=== PATIENT | female | born 1985 | race African-American/Black ===

== ENCOUNTER 2025-09-07 17:55 | Inpatient (IN) | payer SELFPAY ==
--- OUTSIDE RECORDS SUMMARY | 2024-12-04 03:40 | XMS_ITS ---
Author Organization [facility] Address [address] [place] [address] Care Team Providers Care Plumbing Warehouse Helper Name Role Phone Fuentes Rome Unavailable [phone] REASON FOR VISIT Pulmonary Follow up Encounters Encounter Location Date Provider Diagnosis [facility] [address] [place] [address] 12/04/2024 Fuentes Rome Plan Of Treatment No Information Progress Notes * Rolly LARSONnDOB:[birth year] (40 yo F)Acc No.[id number]:12/04/2024 Progress Notes Patient: Qian MALONE Provider: Salvador Rome MD :1985 A ge:39 Y S ex:Female Date:12/04/2024 Address:[address] [place], [place] [id number] Subjective: * Chief Complaints: * 1 . Pulmonary Follow up. * Medical History: * Implants: Objective: * Vitals: * Physical Examination: Assessment: Plan: * Treatment: * * Electronic signature of Marcellus Rome MD on 09/07/2025 at 05:39 AM EST Sign off status: Pending * Provider: Salvador Rome MD Date: 0 12/04/2024 Generated for Reneei ng/Miguelito/eTransmitting on: 1 11/08/2024 05:39 AM EST
--- OUTSIDE RECORDS SUMMARY | 2025-09-07 05:38 | XMS_ITS | Encounter Summary ---
Author Organization [facility] Address [address] [place] [address] Care Team Providers Care Manager Company Name Role Phone No, Pcp Primary Care Provider Unavailabl e Reason for Visit * Reason Comments Psych Complaint Encounter Details Date Type Department Care Team ([facility] st Contact Info) Description 09/07/2025 5:38 AM EST - 09/07/2025 5:24 PM EST Emergency [facility] Emergency Medicine [address] [place] [phone] Isabela Blake MD [address] [place] [address] Discharge Disposition: Psychiatric Hospital Social History Tobacco Use Types Packs/Day Years Used Date Smoking Tobacco: Never Assessed [facility] Utilities Answer Date Recorded In the past 12 months has th e electric, gas, oil, or water company threatened to shut off services in your home? No 09/07/2025 Humiliation, Afraid, Rape, and Kick questionnair e Answer Date Recorded Within the last year, have y ou been afraid of your partner or ex-partner? No 09/07/2025 Emotionally Abused Not on file 09/07/2025 Physically Abused Not on file 09/07/2025 Sexually Abused Not on file 09/07/2025 Hunger Vital Sign Answer Date Recorded Within the past 12 months, y ou worried that your food would run out before you got the money to buy more. Never true 09/07/20 25 Ran Out of Food in the Last Year Not on file 09/07/2025 PRAPARE - Transportation Answer Date Re corded In the past 12 months, has l ack of transportation kept you from medical appointments or from getting medications? No 08/20 In the past 12 months, has l ack of transportation kept you from meetings, work, or from getting things needed for daily living? No 09/07/2025 Financial Strain Answer Date Recorded Do you have difficulty payin g for prescriptions or medical bills? 2 09/07/2025 Housing Stability Answer Date Recorded Do you have housing? Yes 09/07/2025 Are you worried about losing your housing? No 09/07/2025 Comments Unknown Sex and Gender Information Value Date Recorded Sex Assigned at Female 03/15/2025 5:48 PM EDT Legal Sex Female 5:48 PM EDT Gender Identity Not on file Sexual Orientation Not on file documented as of this encounter Last Filed Vital Signs Vital Sign Reading Time Taken Comments Blood Pressure 134/90 09/07/2025 2:16 PM EST Pulse 114 09/07/2025 2:16 PM EST Temperature 36.9 C (98.4 F) 09/07/2025 5:40 AM EST Respiratory Rate 20 09/07/2025 2:16 PM EST Oxygen Saturation 97% 09/07/2025 2:16 PM EST Inhaled Oxygen Concentration - - Weight - - Height - - Body Mass Index - - documented in this encounter Medications at Time of Discharge ibuprofen (MOTRIN) 600 MG tablet Take 1 (one) tablet (600 mg total) by mouth every 6 (six) hours as needed (hand pain). 14 tablet 07/22/2025 documented as of this encounter Progress Notes Only the most recent of 2 notes is shown. * Renetta Hoang - 09/07/2025 12:00 PM EST Denied from [facility] due to [facility] limited insurance coverage Referral forwarded to Elsy HIDALGO and Kandace at this time. documented in this encounter ED Notes Only the most recent of 4 notes is shown. * Monet Bird RN - 09/07/2025 2:51 PM EST Nurse to Nurse report given to Deepthi GARCIA at [facility] Monet Bird RN 09/07/25 1452 documented in this encounter Miscellaneous Notes * Discharge Note - Isabela Blake MD - 09/07/2025 2:38 PM EST ED PROFESSIONAL / OBSERVATION DISCHARGE NOTE Qian Bowman is a 40 y.o. female who was placed into observation. Please refer to H&P from the date of observation initiation. ED Events Date/Time Event User Comments 09/07/25 0738 Behavioral Health Observation ISABELA BLAKE Place in ED Behavioral Health Observation- [[id number]] Family History: No reported family history Discharge assessment: Patient has been accepted to [facility] for inpatient level of psychiatric care. Patient will be transferred for treatment by [facility]. Vital signs remained stable patient maintaining behavioral control and is cooperative Discharge exam: Patient awake alert oriented x 3 no respiratory distress comfortable with no additional complaints or concerns moving all extremities speech is clear Plan: Follow-up instructions and findings during the observation stay have been communicated to thepatient. Based on the patient's assessment and response to treatment, arrangements have been made for the patient following the observation period as per selected ED disposition. Patient been excepted in transfer to [facility] Dr. Khan Time spent managing discharge: 30 minutes or less. * Admission - Renetta Hoang - 09/07/2025 12:54 PM EST Pt is accepted to [facility], [address], located at [address] [place] [address] in [facility] She is accepted by Dr. Khan for 4:00PM arrival Please send on S12 RN from [place] will be calling [phone] for nurse to nurse shortly * Initial Evaluation - Renetta Hoang - 09/07/2025 9:41 AM EST Initial Evaluation [facility] Patient Name: Qian Bowman : 1985 Assessment Date: 09/07/25 Language: Ecuadorean Means of Arrival: ambulance Present in Session: patient Communication Factors: none Referral Source: Self/Family Referral Source Contact: - [place] [phone] Additional Sources of Information: EMR Chief Complaint: Patient BIBNeto from home for evaluation for anxiety, SI w/o a plan, and HI without a plan or person. Patient reports that this has been going on since her miscarriage in June. History of Present Illness: Pt is a 40 year old female who presents to the ED reporting increased depression, anxiety and suicidal thinking over the past month. Pt reports that she has a 1 year old daughter and she also had a miscarriage in June of this year. Pt feels that her symptoms are post related to the miscarriage and notes that she experienced similar symptoms following the of her daughter one year ago. At that time she required psychiatric hospitalization and was treated at [facility] for 4 days. Pt feels that her symptoms are worse this time. Pt reports increasing depression with loss of energy, feeling detached from her and child, low motivation to take care of herself and attend to her ADLs, loss of appetite, severe anxiety, and inconsistent sleep patterns. She denies AH/VH but endorses some vague feelings of paranoia. 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 Pt also admits to abusing alcohol daily for the past 2 months as a coping mechanism. She reports that she has been drinking whiskey from the time she wakes up until she passes out at night. She endorses withdrawal symptoms of nausea, sweating and tremors today. She denies any seizures of delerium. She reports alcohol abuse has never been a problem before in her life. Pt is concerned for her ownsafety at this point as she notes her suicidal thoughts have been constant. She denies having a plan or any attempts. She denies any HI when asked but reports a general feeling of detachment from her1 year old daughter I don't even want to hold her . Date Call Received: 09/07/25 Time Call Received: 929 Date Call Responded To: 09/07/25 Time Call Responded To: 5731 Telepsych Eval?: Yes Did the patient engage in any behaviors that either had potential to, or did harm to themselves or someone else?: No Danger to Others Danger to Others: No Risk Event Assessment Plan Based on the RICKI, has risk to self or others been identified?: Yes Patient agrees to engage in a plan to maintain safety?: Yes Interventions: Restriction to unit, Continuous supervision (EPB Only), Safety linens/tear resistantcoverlet, Removal of objects which may be used for self- harm, Search of patient's belongings/room, Suicide/self-injury precaution diet Name of Provider Notified: Dr. Blake Date Provider Notified: 09/07/25 Time Provider Notified: 939 Risk Profile Risk Profile: Suicide/ Self Injury Do you have housing?: Yes Are you worried about losing your housing? : No Within the past 12 months, you worried that your food would run out before you got the money to buymore.: Never true Do you have difficulty paying for prescriptions or medical bills?: No In the past 12 months, has lack of transportation kept you from medical appointments or from getting medications?: No In the past 12 months, has lack of transportation kept you from meetings, work, or from getting things needed for daily living?: No In the past 12 months has the [employer], gas, oil, or water [employer] threatened to shut off services in your home?: No Intervention: Psychoeducation, Family/peer connection established, Develop/enhance/review coping skills [place] Screen (C-SSRS) Risk Level: C-SSRS Risk Level: 0.5 Low Risk (0.5-1.5) Moderate Risk (2-4.5) High Risk (5+) Suicide Inquiry: Suicidal Thoughts (Frequency, Duration, Intensity/Controllability): Yes x1 month, growing more intense and persistent Suicide Plan (timing, location): Denies Availability of Means: No Preparatory Acts/Behaviors: Denies Intent (lethality): No History of Attempts: No If Yes, Describe (type of attempt including interrupted, self-interrupted, when, precipitants, means, level of impulsivity, intent, outcome): N/A Risk Behaviors: Past and Current Risk/Safety Assessment Behaviors Risk History and Active Aggressive/Assaultive Not active and denies history Homicidal Ideation/Attempts Not active and denies history Self-Injurious Behavior Not active and denies history Sexualized Behavior Not active and denies history Elopement Not active and denies history Fire Setting Not active and denies history Property Destruction Not active and denies history Cruelty to Animals Not active and denies history Pica/Swallowing objects Not active and denies history Somatic Functioning Sleep: Pt reports inconsistent sleep patterns Weight: loss 1-10 lbs Appetite: decreased Eating Behaviors: eating less Energy: decreased Additional History Past Psychiatric Care Pt was hospitalized at [facility] one year go after the of her daughter for similar symptoms. Past Psychiatric Medications: Pt reports she was given sleep medication following her admission to [facility] last year. She is not on any other medications at this time. Current Treatment for Psychiatric Care No providers currently. 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 Legal Issues: None Sexual History Sexual Orientation: Is your gender identify the same as the one you were assigned at : Significant Substance Use History Pt reports daily ETOH for the past 2 months as a coping mechanism - she says that she has been drinking whiskey shots from the time she wakes up, until she passes out in the evening. She endorses withdrawal symptoms of nausea, sweating and tremors. No hx of seizures or DT. She states alcohol has never been an issue in her life until now. Specialty Services None Family History: No family history on file. No current facility-administered medications for this encounter. Current Outpatient Medications Medication Sig Dispense Refill ibuprofen (MOTRIN) 600 MG tablet Take 1 (one) tablet (600 mg total) by mouth every 6 (six) hours asneeded (hand pain). 14 tablet 0 Side effects noted: N/A Allergies: No Known Allergies PCP: Pcp MD Miya There is no problem list on file for this patient. No past medical history on file. Mental Status Examination Appearance/behavior: Appears stated age. Well groomed. Good eye contact. Manner: Calm. Cooperative. Orientation: Oriented x 3. Musculoskeletal: Gait and station normal. Motor: Unremarkable. Speech: Normal volume. Normal rhythm Normal rate Language: Able to repeat words Able to name objects Mood: Depressed Affect: Depressed. Flat. Thought process: Linear. Reports some vague paranoia, denies AH/VH Associations: Intact. Thought content: Pt reports persistent SI over the past month and feelings of detachment. Perception: No hallucinations. Suicidal ideation: Active. No plan. Homicide ideation: Denies. Insight: Fair. Judgement: Fair. Recent and remote memory: Intact long and short term memory. Attention and concentration: Developmentally appropriate. Fund of knowledge: Adequate. Risk/Protective Factors: General: Active Substance Abuse Access to a Gun: No Psychiatric Symptoms: Depressed mood, Paranoid ideation*, and Severe anxiety/panic Suicidal Behavior: SI - no plan or attempts Harm to Others: None Elopement Risk: None Protective Factors: Family/friends/caregivers willing and able to support patient, Motivated to engage in and follow safety plan, Responsibility to family, friends, and/or pets, and Stable home and finances Adequacy of evaluation and feedback: Have you interviewed informant other than patient?: No* Are supportive adults available to watch carefully for 24 hours and ensure a follow-up appointment?: Yes Is family prepared to remove or secure pills, guns, and other weapons from the home?: Yes Suicide Risk Level: Moderate Aggression Risk Level: Low Elopement Risk Level: Low Formulation/Rationale for Level of Care: Pt reports persistent suicidal ideation over the past month as well as worsening severe depressive symptoms impacting her daily functioning. She has also been abusing alcohol daily for 2 months whichis putting her at risk for impaired judgment/disinhibition as it relates to her suicidal thinking. Pt is a risk to herself at this time and requires further psychiatric evaluation for support, safety,and stabilization. *If you have picked any of the starred items above, and you plan to discharge patient, explain the reasons for your decision: N/A *I attest that in my suicide assessment of this patient I identified suicide risk and protective factors, conducted a suicide inquiry, determined the level of suicide risk and the intervention(s) to best address this risk: Yes Diagnoses: F53.0 PPD F10.20, Alcohol use disorder, sev Initial Plan: Client meets level of care Pt will board in the ED to await placement Disposition: ED board for inpatient psych, , Legal Status: Section 12 Authorization: none I have counseled the patient/family about: the disinhibiting effects of alcohol/drugs, as their useincreases risk of harm to self/others and the need for supervision until the follow up Disposition and treatment plan options discussed with patient, parent, and/or legal guardian: Yes. Does the patient have any Advanced Psychiatric Directives? No Case, disposition and treatment plan discussed with spring up supervisor: Yes, Dr. Blake Total Time: 1 hour Signature: Renetta Hoang Electronic Signature documented in this encounter Plan of Treatment Not on file documented as of this encounter Procedures Procedure Name Priority Date/Time Associated Diagnosis Comments BASIC METABOLIC PANEL STAT 09/07/2025 6:20 AM EST CBC WITH DIFF STAT 09/07/2025 6:20 AM EST HCG, QUALITATIVE, SERUM STAT 09/07/2025 6:20 AM EST ETHANOL LEVEL STAT 09/07/2025 6:20 AM EST URINE DRUG SCREEN STAT 09/07/2025 6:1 4 AM EST CONVERSION BUPRENORPHINE SUBOXONE SCREEN Routine 09/07/2025 6:14 AM EST documented in this encounter Results * HCG, Qualitative, Serum (09/07/2025 6:20 AM EST) hCG Qualitative, Serum Negative negative 09/07/2025 7:06 AM EST [facility] Comment: A negative or indeterminate result does not rule out . Because hCG doubles every two days, patients with negative or indeterminate results should be redrawn and retested in 2 days, if indicated. Blood 09/07/2025 6:20 AM EST 09/07/2025 6:30 AM EST us Lizz Park DO LAB BLOOD ORDERABLES Final Resul t [facility] [address] [place] [address], [facility] [address] [place] [address] * (ABNORMAL) Ethanol Level (09/07/2025 6:20 AM EST) Ethanol Level 16(H) Not Detected MG/DL 09/07/2025 7:11 AM [facility] Blood PERIPHERAL BLOOD / Unknown 09/07/2025 6:20 AM EST 09/07/2025 6:30 AM EST Lizz Park DO LAB BLOOD ORDERABLES Final Resul t [facility] [address] [place] [address], [facility] [address] [place] [address] * (ABNORMAL) Basic Metabolic Panel (09/07/2025 6:20 AM EST) Glucose 101(H) 67 - 99 MG/DL 09/07/2025 7:11 AM [facility] BUN 8 6 - 24 MG/DL 09/07/2025 7:11 AM [facility] Creat Level 0.70 0.44 - 1.03 MG/DL 09/07/2025 7:11 AM [facility] eGFR 113 >90 mL/min/1.7 3m exp2 09/07/2025 7:11 AM [facility] Comment:Calculated using the CKD-epi 2020 race-free equation. BUN Creatinine Ratio 11 09/07/2025 7:11 AM [facility] Sodium 136 135 - 145 mEq/L 09/07/2025 7:11 AM [facility] Potassium 3.3(L) 3.6 - 5.1 mEq/L 09/07/2025 7:11 AM [facility] Chloride 98 98 - 110 mEq/L 09/07/2025 7:11 AM [facility] CO2 19(L) 20 - 29 mEq/L 09/07/2025 7:11 AM [facility] Anion Gap 19(H) 3 - 13 09/07/2025 7:11 AM [facility] Calcium 8.0(L) 8.4 - 10.2 MG/DL 09/07/2025 7:11 AM [facility] Blood 09/07/2025 6:20 AM EST 09/07/2025 6:30 AM EST us Lizz Park DO LAB BLOOD ORDERABLES Final Resul t [facility] [address] [place] [address], [facility] [address] [place] [address] * (ABNORMAL) CBC WITH DIFF (09/07/2025 6:20 AM EST) WBC 3.4(L) 4.2 - 10.0 w27jvc7/L 09/07/2025 6:47 AM [facility] RBC 4.08 3.80 - 5.10 t43osz47/ L 09/07/2025 6:47 AM [facility] Hemoglobin 12.8 11.2 - 14.9 g/dL 09/07/2025 6:47 AM [facility] Hematocrit 37.1 36.0 - 48.0 % 09/07/2025 6:47 AM [facility] MCV 90.9 85.2 - 100.2 fL 09/07/2025 6:47 AM [facility] MCH 31.4 27.0 - 32.4 pg 09/07/2025 6:47 AM [facility] MCHC 34.5(H) 29.5 - 34.2 g/dL 09/07/2025 6:47 AM [facility] RDW 15.6(H) 11.8 - 14.4 % 09/07/2025 6:47 AM [facility] Platelets 233 168 - 382 d19qgg0/L 09/07/2025 6:47 AM [facility] MPV 11.0 9.6 - 12.5 fL 09/07/2025 6:47 AM [facility] NRBC % 0.0 -1.0 - 0.0 % 09/07/2025 6:47 AM [facility] NRBC (absolute) 0.0 o35tid1/L 6:47 AM [facility] Immature Granulocytes % 0.3 % 09/07/2025 6:47 AM [facility] Immature Granulocytes (absolute) 0.0 0.0 - 0.1 l32gtw7/L 09/07/2025 6:47 AM [facility] Seg Neutrophil % 59.4 % 09/07/20 6:47 AM EST [facility] Seg Neutrophil (absolute) 2.0 1.9 - 6.7 z48cia0/L 09/07/2025 6:47 AM EST [facility] Lymphocyte % 26.7 % 09/07/2025 6:47 AM EST [facility] Lymphocyte (absolute) 0.9(L) 1.0 - 3.3 b70uvl9/L 09/07/2025 6:47 AM [facility] Monocyte % 10.6 % 09/07/2025 6:47 AM [facility] Monocyte (absolute) 0.4 0.3 - 0.9 c24iwp2/L 09/07/2025 6:47 AM [facility] Eosinophil % 1.2 % 09/07/2025 6:47 AM [facility] Eosinophil (absolute) 0.0 0.0 - 0.4 y07xsj4/L 09/07/2025 6:47 AM [facility] Basophil % 1.8 % 09/07/2025 6:47 AM [facility] Basophil (absolute) 0.1 0.0 - 0.1 q12hhh6/L 09/07/2025 6:47 AM [facility] 09/07/2025 6:20 AM EST 09/07/2025 6:30 AM EST us Lizz Pakr DO LAB BLOOD ORDERABLES Final Resul t [facility] [address] [place] [address], [facility] [address] [place] [address] * Buprenorphine Suboxone Screen (09/07/2025 6:14 AM EST) Buprenorphine Suboxone Scrn None Detected 09/07/2025 6:51 AM EST [facility] 09/07/2025 6:14 AM EST 09/07/2025 6:32 AM EST us Lizz Del Castillok DO LAB BLOOD ORDERABLES Final Resul t [facility] [address] [place] [id number], [facility] [address] [place] [address] * Urine Drug Screen (09/07/2025 6:14 AM EST) Amphetamine Scrn, Ur None Detected 09/07/2025 6:51 AM EST [facility] Benzodiazepine Screen, Urine None Detected 09/07/2025 6:51 AM [facility] Cannabinoid Screen, Urine None Detected 09/07/2025 6:51 AM [facility] Cocaine Screen, Ur None Detected 09/07/2025 6:51 AM [facility] Fentanyl Screen, Urine None Detected 09/07/2025 6:51 AM EST [facility] Comment: This test was developed and its performance characteristics determined by the Clinical Biochemistry Lab. It has not been cleared or approved by the [place] Food and Drug Administration but the [place] regulations permit its development under the laboratory license. This test and method is defined in the clinical lab guide and should not be regarded as investigational or research use only. Methadone Screen, Urine None Detected 09/07/2025 6:51 AM [facility] Opiate Screen, Urine None Detected 09/07/2025 6:51 AM [facility] Comment: Note: Drug of abuse immunoassay results are from screening methods. Positive screening results that are not confirmed are reported as POSITIVE SCREEN. If confirmatory testing is desired, it must be requested as a separate order to the Toxicology Lab WITHIN 5 DAYS of sample collection. Unconfirmed screening results should only be used for medical purposes. Oxycodone Scrn, Ur None Detected 09/07/2025 6:51 AM [facility] Urine 09/07/2025 6:14 AM EST 09/07/2025 6:32 AM EST us Lizz Vivian DO URINE ORDERABLES Final Result [facility] [address] [place] [address], [facility] [address] [place] [address] documented in this encounter Visit Diagnoses Not on filedocumented in this encounter Administered Medications Inactive Administered Medications - up to 3 most recent administrations Medication Order MAR Action Action Date Dose Rate Site LORazepam (ATIVAN) tablet 2 mg 2 mg, Oral, Once, On Wed09/07/25 at 1015, 1 dose Given 09/07/2025 10:05 AM EST 2 mg documented in this encounter Active and Recently Administered Medications Times are shown in EST. Scheduled Medication Order 09/05/2025 09/06/2025 09/07/2025 LORazepam (ATIVAN) tablet 2 mg (COMPLETED) 2 mg, Oral, Once, On Wed09/07/25 at 1015, 1 dose 1005 (Given - Provid er: Monet Bird RN) documented in this encounter Care Teams Manager Company Relationship Specialty Start Date End Date No, Pcp, No Address No [place] [address] PCP - General Internal Medicine 07/22/25 documented as of this encounter
--- OUTSIDE RECORDS SUMMARY | 2025-09-07 18:03 | XMS_ITS | Patient Health Record ---
Author Organization [facility] Address [address] [place] [address] Care Team Providers Care Airline Stewardess Name Role Phone Fuentes Rome Unavailable [phone] Allergies No Known Allergies Reason For Referral No Information Medications Medication SIG (Take, Route, Fr equency, Duration) Notes Start Date End Date Status 27-1 MG 1 tablet Orally Once a day Active Aspir-Low 81 MG 1 tablet Orally Once a day Active Immunizations Vaccine Route Administration Date Status Comme nts PPD ID Intradermal 10/20/2023 Administered -Per Provider PPD read is positive and is 2CM. Social History Tobacco Use: Social History Observation Description Date Details (start date - stop date) Never Smoker NA - NA Tobacco Use/Smoking Question Answer Notes Patient is a: never smoker Encounters Encounter Location Date Provider Diagnosis [facility] [address] [place] [address] 12/05/2024 Fuentes Rome Plan Of Treatment No Information Insurance Providers Payer Name Payer Address Payer Phone Subscriber Number Group Number Insured Name Patient Relationship to Insured Coverage Start Date Coverage End Date [facility]ly [facility] [address] [place] [phone] [id number] COMMERCIA L Emilianotoni Qian Self - patient is the insured 4 4 [facility] [address] AMINA [place] [id number] Qian Jarvis Self - patient is the insured 3 4 Medical (General) History Hospitalization History Reason Date(Month/Year) [facility]
--- OUTSIDE RECORDS SUMMARY | 2025-09-07 18:03 | XMS_ITS | Clinical Summary ---
Author Organization [facility] Address [address] [place] [address] Phone Care Team Providers Care Geospatial Specialist Name Role Phone Tani Lozano MD Unavailable [phone] Allergies No known active allergies Medications vit no.124/iron/foli c ( VITAMIN ORAL) Take by mouth. Active aspirin 81 mg EC tablet Take 81 mg by mouth 1 time each day. Active Social History Tobacco Use Types Packs/Day Years Used Date Smoking Tobacco: Never Assessed Comments No Sex and Gender Information Value Date Recorded Sex Assigned at Not on file Legal Sex Female 3:23 PM EST Gender Identity Not on file Sexual Orientation Not on file Plan of Treatment Health Maintenance Due Date Last Done Comments Chlamydia and Gonorrhea Screening 1987 HIV Screening 1987 MMR Vaccines (1 of 1 - Stand bryan series) 1988 DTaP/Tdap/Td Vaccines (1 - Tdap) 1994 Anemia Screening 1999 Varicella Vaccines (1 of 2 - 13+ 2-dose series) 2000 Hepatitis C Screening 2005 Hepatitis B Vaccines (1 of 3 - 19+ 3-dose series) 2006 COVID-19 Vaccine (2024-2 6 season) 2025 Influenza Vaccine (#1) 2025 HIB Vaccines Aged Out No longer eligi ble based on patient's age to complete this topic HPV Vaccines (No Doses Required) Completed Hepatitis A Vaccines Aged Out No long er eligible based on patient's age to complete this topic IPV Vaccines Aged Out No longer eligi ble based on patient's age to complete this topic Meningococcal B Vaccine Aged Out No l onger eligible based on patient's age to complete this topic Meningococcal Vaccine Aged Out No agustin celio eligible based on patient's age to complete this topic Pneumococcal Vaccine: Pediat rics (0 to 5 Years) and At-Risk Patients (6 to 49 Years) Aged Out No longer eligible b ased on patient's age to complete this topic Rotavirus Vaccines Aged Out No longer eligible based on patient's age to complete this topic Insurance [employer] on file [employer] on file Care Teams Geospatial Specialist Relationship Specialty Start Date End Date Tani Lozano MD [address] [place] [address] [place] [phone] Referring Provider Obstetrics and Gynecology 08/24/24
--- OUTSIDE RECORDS SUMMARY | 2025-09-07 18:03 | XMS_ITS | Clinical Summary ---
Author Organization [facility] Address [address] [place] [address] Care Team Providers Care Licensed Staff Mft Name Role Phone Pcp, No Primary Care Provider Unavailabl e Allergies No known active allergies Social History Tobacco Use Types Packs/Day Years Used Date Smoking Tobacco: Never Assessed Comments Unknown Sex and Gender Information Value Date Recorded Sex Assigned at Not on file Legal Sex Female 4:07 PM EDT Gender Identity Not on file Sexual Orientation Not on file Last Filed Vital Signs Vital Sign Reading Time Taken Comments Blood Pressure 146/87 02/12/2024 4:12 PM EDT Pulse 72 02/12/2024 4:12 PM EDT Temperature 37.1 C (98.7 F) 02/12/2024 4:12 PM EDT Respiratory Rate 16 02/12/2024 4:12 PM EDT Oxygen Saturation 100% 02/12/2024 4:12 PM EDT Inhaled Oxygen Concentration - - Weight 89.4 kg (197 lb) 02/12/2024 4:12 PM EDT Height 175.3 cm (5' 9 ) 02/12/2024 4:12 PM EDT Body Mass Index 29.09 02/12/2024 4:12 PM EDT Plan of Treatment Health Maintenance Due Date Last Done Comments Annual Physical 1990 Hepatitis B Screening 2005 DTaP,Tdap,and Td Vaccines (1 - Tdap) 2006 COVID-19 Vaccine (2023-2 5 season) 2025 Influenza Vaccine (#1) 2025 HIB Vaccines Aged Out No longer eligi ble based on patient's age to complete this topic Hepatitis A Vaccine Aged Out No longe r eligible based on patient's age to complete this topic Pneumococcal Vaccines 0-49 y rs (includes High Risk) Aged Out No longer eligible based on patient's age to complete this topic Insurance HSN PARTIAL Care Teams Licensed Staff Mft Relationship Specialty Start Date End Date Miya Dobbins [phone] PCP - General 02/12/24
--- OUTSIDE RECORDS SUMMARY | 2025-09-07 18:03 | XMS_ITS | Encounter Summary ---
Author Organization [facility] Address [email or web address] [place] [address] Phone Care Team Providers Care Multi Purpose Machine Operator Name Role Phone Shelli Maher DO Primary Care Provider Encounter Details Date Type Department Care Team (Late st Contact Info) Description 09/02/2024 Procedure Pass [facility] [address] [place] [address] Social History Tobacco Use Types Packs/Day Years Used Date Smoking Tobacco: Never Passive Smoke Exposure: Never Smokeless Tobacco: Never Alcohol Use Standard Drinks/Week Comments Not Currently 0 (1 standard drink = 0.6 oz pur e alcohol) Education Answer Date Recorded Are you interested in more education? Not on virginia e 01/15/2023 Are you concerned about learning? Not on file 01/15/2023 No 01/15/2023 No 01/15/2023 Digital Access Answer Date Recorded No 02/15/2023 No 02/15/2023 Reliable internet access at home? Not on file 02/15/2023 Device with a working camera? Not on file Intimate Partner Violence Answer Date R ecorded Are you denied basic needs s uch as food, clothing, or medical care? No 09/01/2024 In the past 12 months have y ou been in a relationship with a person who hurts, threatens, or tries to control you? No 09/01/2024 Are you denied basic needs s uch as food, clothing, or medical care? No 09/01/2024 In the past 12 months have y ou been in a relationship with a person who hurts, threatens, or tries to control you? No 09/01/2024 Comments Yes Sex and Gender Information Value Date Recorded Sex Assigned at Female 01/19/2022 3:09 PM EDT Legal Sex Female 11:49 PM EDT Gender Identity Female 01/19/2022 3:09 PM EDT Sexual Orientation Straight 01/19/2022 3: 09 PM EDT documented as of this encounter Plan of Treatment Not on file documented as of this encounter Visit Diagnoses Not on filedocumented in this encounter Additional Health Concerns Assessment Noted Time PHQ-2 Depression Total Score: 0 08/15/20 24 3:23 PM EST documented as of this encounter Care Teams Multi Purpose Machine Operator Relationship Specialty Start Date End Date Shelli Maher DO [address] [place] [phone] [email or web address] PCP - General Internal Medicine 05/12/24 documented as of this encounter Additional Source Comments The information contained in this document represents components of the legal health record. It is not the complete legal health record.[facility]
--- OUTSIDE RECORDS SUMMARY | 2025-09-07 18:03 | XMS_ITS | Clinical Summary ---
Author Organization [facility] Address [address] [place] [address] Phone Care Team Providers Care Acute Care Surgeon Name Role Phone Shelli Maher DO Primary Care Provider Allergies No known active allergies Medications No known medications Active Problems No known active problems Resolved Problems Problem Noted Date Diagnosed Date Resolved Date 36 weeks gestation of 09/02/2024 10/10/2024 Normal , unspecified trimester 09/01/2024 10/10/2024 Normal intrauterine , antepartum 09/01/2024 10/10/2024 and placental problem affecting management of mother in third trimester 09/01/2024 10/10/2024 Overview (09/01/2024): Pericardial Effusion noted on recent OB US - patient not seen by [facility] NICU PLAN: Delivery is planned via ECV/IOL or CS on 09/01. (Update 09/01 - fetus is vertex) Delivery Location: Delivery Room if vaginal delivery. The NICU team members who will be at the delivery will include Physicians, Nurses and a Respiratory Therapist. Delayed cord clamping is recommended - this at the discretion of the NICU team attending the delivery. Qian has not had genetic counseling. Cord blood for genetic testing will not be obtained. The infant will be assessed and stabilized by the Neonatology team. The family may be able to hold their baby prior to transfer given the underlying medical condition, and dependent on the baby's clinical condition. This is at the discretion of the NICU team attending the delivery. Delivery Room and Immediate Medical Plan: The NICU team will evaluate the baby in the Delivery Room. If they are well appearing they may stay with the mother and be admitted to [facility]. The NICU Resident will leave a message for the Pediatric Hospitalist/Primary Warehouse Delivery Manager. Baby should have a Cardiology consult during the stay in N with a likely ECHO at that time. I also recommend a renal US prior to discharge. Feeding: I reviewed the benefits of breast milk, the importance of early pumping after delivery (< 6 hours), and the availability of [facility] consultants to provide assistance for initiation of pumping. Breech presentation 08/28/2024 10/10/19 25 Overview (09/01/2024): 35w: vertex 36w: breech 37w: found to be vertex on presentation for ECV Abnormal ultrasound 08/24/2024 Overview (08/28/2024): Mild Pericardial effusion on u/s at 35 weeks 36w: difficult to assess S/p MFM e-consult: MFCC/TTE prior to delivery or faina consult -> assessment [ ] f/u MFCC Pre-eclampsia in third trimester 06/05/2024 11/13/2024 Overview (08/28/2024): Pre-eclampsia w/o SF 06/05/24: SR BP in office x1 35w: MR in office -> PEC labs neg, P:C 0.52 IOL 37w Marginal insertion of umbili prateek cord affecting management of mother 05/16/2024 Overview (05/16/2024): Marginal cord insertion [ ] Obtain baseline EFW at 32 weeks Antepartum abnormal glucose tolerance of mother 05/16/2024 10/10/2024 Overview (05/30/2024): GLT 148 @21w5d [x] 3h GTT - normal - per Dr. Lozano no further testing GTT (3 Hr) - Fasting Glucose 54 - 94 mg/dL 81 Comment: GTT (3 Hr) - 1 Hr Glucose 54 - 179 mg/dL 138 Comment: GTT (3 Hr) - 2 Hr Glucose 54 - 154 mg/dL 144 Comment: GTT (3 Hr) - 3 Hr Glucose 70 - 139 mg/dL 116 03/14/2024 05/30/2024 Advanced maternal age, primi , antepartum 03/14/2024 10/10/2024 Immunizations No known immunizations Family History Medical History Relation Comments No Known Problems Brother No Known Problems Father No Known Problems Maternal Grandfather No Known Problems Maternal Grandmother No Known Problems Mother No Known Problems Paternal Grandfather No Known Problems Paternal Grandmother No Known Problems Sister defects Neg Hx Bleeding Disorder Neg Hx Breast cancer Neg Hx Colon cancer Neg Hx Diabetes Neg Hx Genetic Disorder Neg Hx Hypertension Neg Hx Ovarian cancer Neg Hx Uterine cancer Neg Hx Relation Status Comments Brother Alive Father Alive Maternal Grandfather Maternal Grandmother Mother Alive Paternal Grandfather Paternal Grandmother Sister Alive Social History Tobacco Use Types Packs/Day Years Used Date Smoking Tobacco: Never Passive Smoke Exposure: Never Smokeless Tobacco: Never Tobacco Cessation:Counseling Given: Not Answered Alcohol Use Standard Drinks/Week Comments Not Currently [...] as food, clothing, or medical care? No 12/19/2024 In the past 12 months have y ou been in a relationship with a person who hurts, threatens, or tries to control you? No 12/19/2024 Are you denied basic needs s uch as food, clothing, or medical care? No 12/19/2024 In the past 12 months have y ou been in a relationship with a person who hurts, threatens, or tries to control you? No 12/19/2024 Comments No Sex and Gender Information Value Date Recorded Sex Assigned at Female 01/19/2022 3:09 PM EDT Legal Sex Female 11:49 PM EDT Gender Identity Female 01/19/2022 3:09 PM EDT Sexual Orientation Straight 01/19/2022 3: 09 PM EDT Last Filed Vital Signs Vital Sign Reading Time Taken Comments Blood Pressure 128/82 12/19/2024 11:28 AM EDT Pulse 84 09/06/2024 7:58 AM EST Temperature 36.7 C (98.1 F) 09/06/2024 7:58 AM EST Respiratory Rate 18 09/06/2024 7:58 AM EST Oxygen Saturation 97% 09/06/2024 7:58 AM EST Inhaled Oxygen Concentration - - Weight 103 kg (227 lb) 12/19/2024 11:28 AM EDT Height 172.7 cm (5' 8 ) 12/19/2024 11:28 AM EDT Body Mass Index 34.52 12/19/2024 11:28 AM EDT Plan of Treatment Health Maintenance Due Date Last Done Comments Adult Td,Tdap Booster 1987 INFLUENZA VACCINE (#1) 2025 COVID-19 VACCINE ( - 2024-2 6 season) 2025 DEPRESSION SCREENING 12/19/2025 12/19/2024 SCREENING FOR DIABETES 09/01/2027 09/01/2024 PAP SMEAR 12/20/2027 12/19/2024, 12/19/2024 HEPATITIS C SCREENING Completed 05/15/2024 , 05/15/2024 HIV ONE-TIME SCREENING (18-6 5 YEARS) Completed 05/15/2024 SMOKING STATUS SCREENING (On ce After 26 Yrs) Completed 12/19/2024 HEPATITIS A VACCINES Aged Out No long er eligible based on patient's age to complete this topic HIB VACCINES Aged Out No longer eligi ble based on patient's age to complete this topic MENINGOCOCCAL VACCINES (ACWY) Aged Out No longer eligible based on patient's age to complete this topic MENINGOCOCCAL VACCINES (B) Aged Out N o longer eligible based on patient's age to complete this topic PNEUMOCOCCAL VACCINES (0-49 years) Aged Out No longer eligible b ased on patient's age to complete this topic Medical Devices Not on file Procedures Procedure Name Priority Date/Time Associated Diagnosis Comments PAP AND HPV W/ GENOTYPING Routine 12/19/2024 1:14 PM EDT Screening for malignant neoplasm of cervix HEPATITIS C ANTIBODY, QUALITATIVE Routine 05/15/2024 3:36 PM EDT Need for hepatitis C screening test 12 weeks gestation of Advanced maternal age, primigravida, antepartum from Last 3 Months or Most Recently Relevant to Health Maintenance Results * PAP and HPV w/ Genotyping (12/19/2024 1:14 PM EDT) HPV 16 Not Detected Not Detected [facility] HPV 18 Not Detected Not Detected [facility] HPV High Risk Genotype Other Than 16/18 Not Detected Not Detected [facility] Comment:Interpretation of HP V results may depend on Pap results if both tests were done. Pap Test SEE PATHOLOGY REPORT [facility] Specimen Source CERVICAL [address] [facility] 12/19/2024 1:14 PM EDT 12/19/2024 7:16 PM EDT us Tani Lozano MD BODY FLUIDS AND STOOLS O RDERABLES Final Result Performing Organization Address City/[facility] Co de Phone Number [address] [facility] [address] [place], [place] [id number] [place] [address] Department of Path[address] [place] [address], [facility] [address] [place] [address] * Hepatitis C antibody, qualitative (05/15/2024 3:36 PM EDT) HCV Nonreactive Nonreactive [facility] Blood 05/15/2024 3:36 PM EDT 05/15/2024 4:01 PM EDT us Elmira Montero PA-C LAB BLOOD BKR ORDERABLES Final Result [facility] [address] [place] [address] from Last 3 Months or Most Recently Relevant to Health Maintenance Insurance HEALTH SAFETY NET PARTIAL SAFETY NET PARTIAL HEALTH SAFETY NET PARTIAL HEALTH SAFETY NET PARTIAL HEALTH SAFETY NET PARTIAL HEALTH SAFETY NET PARTIAL Advance Directives For more information, please contact: [phone] (9AM - 5PM [facility], Wednesday-Wednesday) Documents on File Type Date Recorded Patient Babysitter Expl anation Advance Directive - Non Epic LMR 05/03/2014 12:00 AM * Full Code (Latest Code Status on File) Date Activated Date Inactivated Comments 09/02/2024 11:55 PM Question Answer Comments Code Status Confirmed With: Patient Care Teams Acute Care Surgeon Relationship Specialty Start Date End Date Shelli Maher DO [address] [place] [phone] [email or web address] PCP - General Internal Medicine 05/12/24 Additional Source Comments The information contained in this document represents components of the legal health record. It is not the complete legal health record.[facility]
--- OUTSIDE RECORDS SUMMARY | 2025-09-07 18:03 | XMS_ITS | Encounter Summary ---
Author Organization [facility] Address [address] [facility] [address] [place] [address] Phone Care Team Providers Care Asphalt Machine Operator Name Role Phone Pcp, Unknown Primary Care Provider Shelli Patel DO Primary Care Provider Encounter Details Date Type Department Care Team (Late st Contact Info) Description 03/13/2024 Ancillary Orders [facility] Gynecology [facility] [address] [facility] [place] [address] [place] [address] Elmira Montero PA-C [address] [place] [address] [email or web address] Supervision of normal first (Primary Dx) Social History Tobacco Use Types Packs/Day Years Used Date Smoking Tobacco: Never Smokeless Tobacco: Never Alcohol Use Standard [...] with a working camera? Not on file Comments Yes Sex and Gender Information Value Date Recorded Sex Assigned at Female 01/19/2022 3:09 PM EDT Legal Sex Female 11:49 PM EDT Gender Identity Female 01/19/2022 3:09 PM EDT Sexual Orientation Straight 01/19/2022 3: 09 PM EDT documented as of this encounter Plan of Treatment Not on file documented as of this encounter Results * US OB LESS THAN 14 WEEKS NUCHAL TRANSLUCENCY WITH 1ST TRIMESTER (03/13/2024 10:50 AM EDT) Anatomical Region Laterality Modality Abdomen, Pelvis, Uterus/Adnexa U ltrasound 03/13/2024 10:5 2 AM EDT Impressions 03/13/2024 11:08 AM EDT Best GA (CRL): 12w4d, EDC: 2024 Fetus 1: Normal nuchal translucency. Narrative 03/13/2024 11:08 AM EDT Findings: Exam(s): OB Ultrasound <14 weeks transabdominal , First tri nuchal translucency scan Indications: First look , Uncertain dates , Advanced maternal age NUMBER: Gill Maternal Anatomy: UTERUS: Normal OVARIES: Both Normal Obstetrical Findings: STATUS: Alive GESTATIONAL SAC: Normally shaped intrauterine gestational sac. AMNIOTIC FLUID: Normal Volume PLACENTA: Anterior Anatomy: HEAD: Normal for gestational age <14 weeks STOMACH: Seen BLADDER: Too early to assess due to gestational age VENTRAL WALL: Normal umbilical cord insertion EXTREMITIES: All 4 Present Measurements: CRL: 60 mm Basis for GA: CRL : 12w4d NUCHAL TRANSLUCENCY: 1.3 mm (A measurement <3.0 mm is normal if patient has screened negative on cell-free DNA aneuploidy screening) Procedure Note Shawn Tang MD - 03/13/2024 Findings: Exam(s): OB Ultrasound <14 weeks transabdominal , First tri nuchaltranslucency scan Indications: First look , Uncertain dates , Advanced maternal age NUMBER: Gill Maternal Anatomy: UTERUS: Normal OVARIES: Both Normal Obstetrical Findings: STATUS: Alive GESTATIONAL SAC: Normally shaped intrauterine gestational sac. AMNIOTIC FLUID: Normal Volume PLACENTA: Anterior Anatomy: HEAD: Normal for gestational age <14 weeks STOMACH: Seen BLADDER: Too early to assess due to gestational age VENTRAL WALL: Normal umbilical cord insertion EXTREMITIES: All 4 Present Measurements: CRL: 60 mm Basis for GA: CRL : 12w4d NUCHAL TRANSLUCENCY: 1.3 mm (A measurement <3.0 mm is normal if patienthas screened negative on cell-free DNA aneuploidy screening) IMPRESSION: Best GA (CRL): 12w4d, EDC: 2024 Fetus 1: Normal nuchal translucency. us Elmira Montero PA-C IMG US OBSTETRIC Final Result documented in this encounter Visit Diagnoses Diagnosis Supervision of normal first Supervision of normal first - Primary documented in this encounter Additional Health Concerns Assessment Noted Time PHQ-2 Depression Total Score: 4 01/21/20 22 10:27 AM EDT documented as of this encounter Care Teams Asphalt Machine Operator Relationship Specialty Start Date End Date Pcp, Unknown PCP - General 01/19/22 05/11/24 Shelli Maher DO [address] [place] [phone] [email or web address] PCP - General Internal Medicine 05/12/24 documented as of this encounter Additional Source Comments The information contained in this document represents components of the legal health record. It is not the complete legal health record.[facility]
--- OUTSIDE RECORDS SUMMARY | 2025-09-07 18:03 | XMS_ITS | Encounter Summary ---
Author Organization [facility] Address [address] [place] [address] Phone Care Team Providers Care Crib Pad Maker Name Role Phone Shelli Maher DO Primary Care Provider Encounter Details Date Type Department Care Team (Late st Contact Info) Description 05/15/2024 Ancillary Orders [facility] [address] [place] [address] [place] [address] Roslyn De Dios MD 1999 [facility] [address] [place] [phone] [email or web address] , unspecified gestational age (Primary Dx); Advanced maternal age, primigravida, antepartum Social History Tobacco Use Types Packs/Day Years [...] of this encounter Results * US OB GREATER THAN OR EQUAL TO 14 WEEKS FOLLOW-UP ONLY (05/15/2024 4:17 PM EDT) Anatomical Region Laterality Modality Abdomen, Pelvis, Uterus/Adnexa U ltrasound 05/15/2024 4:18 PM EDT Impressions 05/15/2024 5:22 PM EDT Best [place] (Prior US): 21w4d, EDC: 2024 Narrative 05/15/2024 5:22 PM EDT Findings: Exam(s): OB Ultrasound >14 weeks follow-up Indications: Follow-up anatomy , Advanced maternal age , Maternal elevated BMI NUMBER: Gill Maternal Anatomy: CERVIX: Normal, >3 cm in length and no funneling Obstetrical Findings: STATUS: Alive ACTIVITY: Present AMNIOTIC FLUID: Normal Volume PLACENTA: Fundal ---No placenta previa PLACENTAL CORD INSERTION: Marginal Anatomy: HEART: Normal 4-Chamber View and outflow tracts. 3VT view could not be obtained due to position. ---Supplemental detailed images of the heart, including the aortic arch and superior and inferior vena cava, appear normal. Measurements: BPD : 52 mm OFD : 65 mm HC : 192 mm AD : 54 mm AC : 170 mm ( 55 %ile) FL : 36 mm ( 0.5 SD below mean) HC/AC: 1.13 (normal range 1.06 - 1.26) Basis for GA: BPDc: 21w2d BPD : 21w3d FL : 21w1d PrUS: 21w4d --- (Prior US: 2023) Procedure Note Khanh Morel MD, PhD - 05/15/2024 Findings: Exam(s): OB Ultrasound >14 weeks follow-up Indications: Follow-up anatomy , Advanced maternal age , Maternalelevated BMI NUMBER: Gill Maternal Anatomy: CERVIX: Normal, >3 cm in length and no funneling Obstetrical Findings: STATUS: Alive ACTIVITY: Present AMNIOTIC FLUID: Normal Volume PLACENTA: Fundal ---No placenta previa PLACENTAL CORD INSERTION: Marginal Anatomy: HEART: Normal 4-Chamber View and outflow tracts. 3VT view could not beobtained due to position. ---Supplemental detailed images of the heart, including the aortic archand superior and inferior vena cava, appear normal. Measurements: BPD : 52 mm OFD : 65 mm HC : 192 mm AD : 54 mm AC : 170 mm ( 55 %ile) FL : 36 mm ( 0.5 SD below mean) HC/AC: 1.13 (normal range 1.06 - 1.26) Basis for GA: BPDc: 21w2d BPD : 21w3d FL : 21w1d PrUS: 21w4d --- (Prior US: 2023) IMPRESSION: Best [place] (Prior US): 21w4d, EDC: 2024 us Roslyn De Dios MD [facility] Final Result documented in this encounter Visit Diagnoses Diagnosis , unspecified gestational age , unspecified gestational age- Primary Advanced maternal age, primigravida, antepartum Elderly primigravida, antepartum documented in this encounter Additional Health Concerns Assessment Noted Time PHQ-2 Depression Total Score: 0 03/14/20 24 2:14 PM EDT documented as of this encounter Care Teams Crib Pad Maker Relationship Specialty Start Date End Date Shelli Maher DO [address] [place] [phone] [email or web address] PCP - General Internal Medicine 05/12/24 documented as of this encounter Additional Source Comments The information contained in this document represents components of the legal health record. It is not the complete legal health record.[facility]
--- OUTSIDE RECORDS SUMMARY | 2025-09-07 18:03 | XMS_ITS | Clinical Summary ---
Author Organization [facility] Address [address] [place] [address] Care Team Providers Care Finger Waver Name Role Phone No, Pcp MD Primary Care Provider Unavailabl e Allergies No known active allergies Medications ibuprofen (MOTRIN) 600 MG tablet Take 1 (one) tablet (600 mg total) by mouth every 6 (six) hours as needed (hand pain). 14 tablet 07/22/2025 Active Encounters Date Type Department Care Team Description 09/07/2025 5:38 AM EST - 09/07/2025 5:24 PM [facility] Emergency [facility] Emergency Medicine [address] [place] [address] Dontae Blake MD Discharge Disposition: [facility] 07/22/2025 3:24 PM EST - 07/22/2025 7:56 PM [facility] Emergency [facility] Emergency Medicine [address] [place] [phone] Agapito Santos DO Arthralgia of both hands (Primary Dx); Hypokalemia Discharge Disposition: Home or Self Care from Last 3 Months Social History Tobacco Use Types Packs/Day Years Used Date Smoking Tobacco: Never Assessed [facility] Utilities Answer Date Recorded In the past 12 months has e [employer], gas, oil, or water company threatened to [...] EST Inhaled Oxygen Concentration - - Weight 103.9 kg (229 lb) 01/27/2025 9:26 AM EDT Height 175.3 cm (5' 9 ) 07/22/2025 3:15 PM EST Body Mass Index 33.82 01/27/2025 9:26 AM EDT Plan of Treatment Health Maintenance Due Date Last Done Comments HEPATITIS C SCREENING 2004 DTAP/TDAP/TD VACCINES (1 - Tdap) 2016 HPV Test 2017 INFLUENZA VACCINE (#1) 2025 COVID-19 IMMUNIZATION (1 - 2 ) 05/21/2025 Cervical Cancer Screening 12/20/2027 Pap Smear 12/20/2027 12/19/2024 ZOSTER VACCINE (1 of 2) 2037 RSV IMMUNIZATION (1 - 1-dose 75+ series) 2062 IPV VACCINES Aged Out No longer eligi ble based on patient's age to complete this topic MENINGOCOCCAL B VACCINE Aged Out No l onger eligible based on patient's age to complete this topic PNEUMOCOCCAL VACCINE Aged Out No long er eligible based on patient's age to complete this topic Procedures Procedure Name Priority Date/Time Associated Diagnosis Comments HCG, QUALITATIVE, SERUM STAT 09/07/2025 6:20 AM EST ETHANOL LEVEL STAT 09/07/2025 6:20 AM EST BASIC METABOLIC PANEL STAT 09/07/2025 6:20 AM EST CBC WITH DIFF STAT 09/07/2025 6:20 AM EST CONVERSION BUPRENORPHINE SUBOXONE SCREEN Routine 09/07/2025 6:14 AM EST URINE DRUG SCREEN STAT 09/07/2025 6:1 4 AM EST X-RAY HAND LEFT 2 VIEWS STAT 07/22/2025 6:43 PM EST X-RAY HAND RIGHT 2 VIEWS STAT 07/22/2025 6:43 PM EST CK STAT 07/22/2025 6:02 PM EST PHOSPHORUS LEVEL STAT 07/22/2025 6:02 PM EST MAGNESIUM LEVEL, BLOOD STAT 6:02 PM EST BASIC METABOLIC PANEL STAT 07/22/2025 6:02 PM EST HC AUTO CBC WITH DIFF STAT 07/22/2025 6:02 PM EST from Last 3 Months Results * (ABNORMAL) Basic Metabolic Panel (09/07/2025 6:20 AM EST) Only the most recent of2 resultswithin the time period is included. Glucose 101(H) 67 - 99 MG/DL 09/07/2025 7:[address] [facility] BUN 8 6 - 24 MG/DL 09/07/2025 7:[address] [facility] Creat Level 0.70 0.44 - 1.03 MG/DL 09/07/2025 7:[address] [facility] eGFR 113 >90 mL/min/1.7 3m exp2 09/07/2025 7:[address] [facility] Comment:Calculated using the CKD-epi 2020 race-free equation. BUN Creatinine Ratio 11 09/07/2025 7:[address] [facility] Sodium 136 135 - 145 mEq/L 09/07/2025 7:[address] [facility] Potassium 3.3(L) 3.6 - 5.1 mEq/L 09/07/2025 7:[address] [facility] Chloride 98 98 - 110 mEq/L 09/07/2025 7:[address] [facility] CO2 19(L) 20 - 29 mEq/L 09/07/2025 7:[address] [facility] Anion Gap 19(H) 3 - 13 09/07/2025 7:[address] [facility] Calcium 8.0(L) 8.4 - 10.2 MG/DL 09/07/2025 7:[address] [facility] Blood 09/07/2025 6:20 AM EST 09/07/2025 6:30 AM EST us Lizz Park DO LAB BLOOD ORDERABLES Final Resul t [facility] [address] [place] [address], [facility] [address] [place] [address] * (ABNORMAL) CBC WITH DIFF (09/07/2025 6:20 AM EST) Only the most recent of2 resultswithin the time period is included. WBC 3.4(L) 4.2 - 10.0 d06juv7/L 09/07/2025 6:[address] [facility] RBC 4.08 3.80 - 5.10 l28lof16/ L 09/07/2025 6:[address] [facility] Hemoglobin 12.8 11.2 - 14.9 g/dL 09/07/2025 6:[address] [facility] Hematocrit 37.1 36.0 - 48.0 % 09/07/2025 6:[address] [facility] MCV 90.9 85.2 - 100.2 fL 09/07/2025 6:47 AM [facility] MCH 31.4 27.0 - 32.4 pg 09/07/2025 6:47 AM [facility] MCHC 34.5(H) 29.5 - 34.2 g/dL 09/07/2025 6:[address] [facility] RDW 15.6(H) 11.8 - 14.4 % 09/07/2025 6:47 AM [facility] Platelets 233 168 - 382 z43cle8/L 09/07/2025 6:47 AM [facility] MPV 11.0 9.6 - 12.5 fL 09/07/2025 6:47 AM [facility] NRBC % 0.0 -1.0 - 0.0 % 09/07/2025 6:47 AM [facility] NRBC (absolute) 0.0 i03sce9/L 6:[address] [facility] Immature Granulocytes % 0.3 % 09/07/2025 6:47 AM [facility] Immature Granulocytes (absolute) 0.0 0.0 - 0.1 w82fcf3/L 09/07/2025 6:[address] [facility] Seg Neutrophil % 59.4 % 09/07/20 6:47 AM [facility] Seg Neutrophil (absolute) 2.0 1.9 - 6.7 u06aaw2/L 09/07/2025 6:[address] [facility] Lymphocyte % 26.7 % 09/07/2025 6:47 AM EST [facility] Lymphocyte (absolute) 0.9(L) 1.0 - 3.3 r37bpy7/L 09/07/2025 6:47 AM EST [facility] Monocyte % 10.6 % 09/07/2025 6:47 AM EST [facility] Monocyte (absolute) 0.4 0.3 - 0.9 r94oxr5/L 09/07/2025 6:47 AM EST [facility] Eosinophil % 1.2 % 09/07/2025 6:47 AM EST [facility] Eosinophil (absolute) 0.0 0.0 - 0.4 l02ori6/L 09/07/2025 6:47 AM EST [facility] Basophil % 1.8 % 09/07/2025 6:[address] [facility] Basophil (absolute) 0.1 0.0 - 0.1 i75sjs8/L 09/07/2025 6:47 AM EST [facility] 09/07/2025 6:20 AM EST 09/07/2025 6:30 AM EST Agendize DO LAB BLOOD ORDERABLES Final Resul t [facility] [address] [place] [phone], [facility] [address] [place] [address] * HCG, Qualitative, Serum (09/07/2025 6:20 AM EST) hCG Qualitative, Serum Negative negative 09/07/2025 7:06 AM EST [facility] Comment: A negative or indeterminate result does not rule out . Because hCG doubles every two days, patients with negative or indeterminate results should be redrawn and retested in 2 days, if indicated. Blood 09/07/2025 6:20 AM EST 09/07/2025 6:30 AM EST Agendize DO LAB BLOOD ORDERABLES Final Resul t [facility] [address] [place] [address] [place] [address], [facility] [address] [place] [address] * (ABNORMAL) Ethanol Level (09/07/2025 6:20 AM EST) Ethanol Level 16(H) Not Detected MG/DL 09/07/2025 7:11 AM EST [facility] Blood PERIPHERAL BLOOD / Unknown 09/07/2025 6:20 AM EST 09/07/2025 6:30 AM EST us Lizz Park DO LAB BLOOD ORDERABLES Final Resul t [facility] [address] [place] [address], [facility] [address] [place] [address] * Urine Drug Screen (09/07/2025 6:14 AM EST) Amphetamine Scrn, Ur None Detected 09/07/2025 6:[address] [facility] Benzodiazepine Screen, Urine None Detected 09/07/2025 6:[address] [facility] Cannabinoid Screen, Urine None Detected 09/07/2025 6:[address] [facility] Cocaine Screen, Ur None Detected 09/07/2025 6:[address] [facility] Fentanyl Screen, Urine None Detected 09/07/2025 6:51 AM EST [facility] Comment: This test was developed [...] Screen, Urine None Detected 09/07/2025 6:[address] [facility] Opiate Screen, Urine None Detected 09/07/2025 6:[address] [facility] Comment: Note: Drug of abuse immunoassay [...] Ur None Detected 09/07/2025 6:51 AM EST [facility] Urine 09/07/2025 6:14 AM EST 09/07/2025 6:32 AM EST us Lizz Vivian DO URINE ORDERABLES Final Result Performing Organization Address [facility] Co de Phone Number [facility] [address] [place] [address], [facility] [address] [place] [address] * Buprenorphine Suboxone Screen (09/07/2025 6:14 AM EST) Buprenorphine Suboxone Scrn None Detected 09/07/2025 6:51 AM EST [facility] 09/07/2025 6:14 AM EST 09/07/2025 6:32 AM EST us Lizz Vivian DO LAB BLOOD ORDERABLES Final Resul t Performing Organization Address [facility] Co de Phone Number [facility] [address] [place] [address], [facility] [address] [place] [address] * X-Ray Hand Left 2 Views (07/22/2025 6:43 PM EST) Anatomical Region Laterality Modality Radiographic Crystal ging 07/22/2025 6:42 PM EST Impressions 07/22/2025 7:48 PM EST IMPRESSION: No acute fracture or dislocation. THIS DOCUMENT HAS BEEN ELECTRONICALLY SIGNED BY CHARLOTTE GONZALEZ MD on 07/22/2025 07:48 PM Narrative 07/22/2025 7:48 PM EST PROCEDURE INFORMATION: Exam: XR Left Hand Exam date and time: 07/22/2025 6:42 PM Age: 40 years old Clinical indication: Numbness; Hand; Left; Additional info: Pain TECHNIQUE: Imaging protocol: Radiologic exam of the left hand. Views: 1 or 2 views. COMPARISON: No relevant prior studies available. FINDINGS: Limitations: The 4th proximal phalanx is partially obscured by ring. Bones/joints: No acute fracture or dislocation. Bone mineralization is normal. The joint spaces are maintained. Soft tissues: No focal soft tissue edema. Procedure Note Charlotte Gonzalez MD - 07/22/2025 PROCEDURE INFORMATION: Exam: XR Left Hand Exam date and time: 07/22/2025 6:42 PM Age: 40 years old Clinical indication: Numbness; Hand; Left; Additional info: Pain TECHNIQUE: Imaging protocol: Radiologic exam of the left hand. Views: 1 or 2 views. COMPARISON: No relevant prior studies available. FINDINGS: Limitations: The 4th proximal phalanx is partially obscured by ring. Bones/joints: No acute fracture or dislocation. Bone mineralization isnormal. The joint spaces are maintained. Soft tissues: No focal soft tissue edema. IMPRESSION: No acute fracture or dislocation. THIS DOCUMENT HAS BEEN ELECTRONICALLY SIGNED BY CHARLOTTE GONZALEZ MD on07/22/2025 07:48 PM [facility] CAD[facility] IMG DIAGNOSTIC IMAGING ORDERABL ES Final Result * X-Ray Hand Right 2 Views (07/22/2025 6:43 PM EST) Anatomical Region Laterality Modality Radiographic Crystal ging 07/22/2025 6:40 PM EST Impressions 07/22/2025 7:52 PM EST IMPRESSION: 1. No acute fracture or dislocation. 2. Flexion deformity at the 5th proximal interphalangeal joint. THIS DOCUMENT HAS BEEN ELECTRONICALLY SIGNED BY CHARLOTTE GONZALEZ MD on 07/22/2025 07:52 PM Narrative 07/22/2025 7:52 PM EST PROCEDURE INFORMATION: Exam: XR Right Hand Exam date and time: 07/22/2025 6:40 PM Age: 40 years old Clinical indication: Numbness; Hand; Right; Additional info: Pain TECHNIQUE: Imaging protocol: Radiologic exam of the right hand. Views: 1 or 2 views. COMPARISON: No relevant prior studies available. FINDINGS: Bones/joints: No acute fracture or dislocation. Flexion deformity at the 5th proximal interphalangeal joint. Bone mineralization is normal. The joint spaces are maintained. Soft tissues: No focal soft tissue edema. Procedure Note Charlotte Gonzalez MD - 07/22/2025 PROCEDURE INFORMATION: Exam: XR Right Hand Exam date and time: 07/22/2025 6:40 PM Age: 40 years old Clinical indication: Numbness; Hand; Right; Additional info: Pain TECHNIQUE: Imaging protocol: Radiologic exam of the right hand. Views: 1 or 2 views. COMPARISON: No relevant prior studies available. FINDINGS: Bones/joints: No acute fracture or dislocation. Flexion deformity at the5th proximal interphalangeal joint. Bone mineralization is normal. The jointspaces are maintained. Soft tissues: No focal soft tissue edema. IMPRESSION: 1. No acute fracture or dislocation. 2. Flexion deformity at the 5th proximal interphalangeal joint. THIS DOCUMENT HAS BEEN ELECTRONICALLY SIGNED BY CHARLOTTE GONZALEZ MD on07/22/2025 07:52 PM [facility] CAD[facility] IMG DIAGNOSTIC IMAGING ORDERABL ES Final Result * (ABNORMAL) Magnesium Level, Blood (07/22/2025 6:02 PM EST) MAGNESIUM LEVEL, BLOOD 1.5(L) 1.6 - 2.3 mg/dL 07/22/2025 7:17 PM EST [facility] 07/22/2025 6:02 PM EST 07/22/2025 6:17 PM EST Bautista CADENA LAB BLOOD ORDERABLES Final Resu lt Performing Organization Address [facility]/ZIP Co de Phone Number [facility] [address] [place] [phone], [facility] [address] [place] [phone] * Phosphorus Level (07/22/2025 6:02 PM EST) Phosphorus 2.9 2.4 - 4.8 MG/DL 07/22/2025 7:17 PM EST [facility] Blood 07/22/2025 6:02 PM EST 07/22/2025 6:17 PM EST Bautista CADENA LAB BLOOD ORDERABLES Final Resu lt [facility] [address] [place] [address], [facility] [address] [place] [address] * (ABNORMAL) CPK (07/22/2025 6:02 PM EST) CK Total 227(H) 22 - 194 IU/L 07/22/2025 7:17 PM EST [facility] Blood 07/22/2025 6:0 2 PM EST 07/22/2025 6:17 PM EST Bautista CADENA LAB BLOOD ORDERABLES Final Resu lt Performing Organization Address City/State/[facility] Co de Phone Number [facility] [address] [place] [phone], [facility] [address] [place] [phone] from Last 3 Months Insurance Care Teams Finger Waver Relationship Specialty Start Date End Date No, MD Mu No Address [place] [address] PCP - General Internal Medicine 07/22/25
--- OUTSIDE RECORDS SUMMARY | 2025-09-07 18:03 | XMS_ITS | Clinical Summary ---
Author Organization [facility] Address [address] [place] [address] Phone Care Team Providers Care Security Systems Specialist Name Role Phone Chata Norris LELO Unavailable Social History Tobacco Use Types Packs/Day Years Used Date Smoking Tobacco: Never Assessed Comments:Smoking History:Nev er smoker Comments Unknown Sex and Gender Information Value Date Recorded Sex Assigned at Not on file Legal Sex Female 10:53 PM EDT Gender Identity Female 06/05/2025 3:08 AM EDT Sexual Orientation Not on file Last Filed Vital Signs Vital Sign Reading Time Taken Comments Blood Pressure 138/87 02/16/2023 8:27 AM EDT Pulse 98 02/16/2023 8:27 AM EDT Temperature 36.6 C (97.9 F) 02/16/2023 8:27 AM EDT Respiratory Rate 18 02/16/2023 8:27 AM EDT Oxygen Saturation 100% 02/16/2023 8:27 AM EDT Inhaled Oxygen Concentration - - Weight 88.9 kg (196 lb) 02/12/2023 3:44 PM EDT Height 175.3 cm (5' 9 ) 02/12/2023 3:44 PM EDT Body Mass Index 28.94 02/12/2023 3:44 PM EDT Plan of Treatment Health Maintenance Due Date Last Done Comments HIV Lifetime Screening 1987 Hepatitis B Lifetime Screening 1987 Hepatitis C Antibody Lifetim e Screening 1987 THRIVE SCREENING 1987 Oral Health Screen 1987 HEIP Disability Screen 1992 BEHAVIORAL HEALTH SCREEN 1999 Psych Substance Use Screen 1999 Relationship Safety Screening 2002 DTAP/TDAP VACCINE (1 - Tdap) 2006 PAP SMEAR 2008 HPV VACCINES (1 - 3-dose SCD M series) 2014 COVID-19 Vaccine (1 - 2024-2 6 season) 2025 INFLUENZA VACCINE (#1) 2025 Diabetes Screening 02/13/2026 02/13/2023 Zoster Vaccine (1 of 2) 2037 IPV VACCINES Aged Out No longer eligi ble based on patient's age to complete this topic MENINGOCOCCAL B Aged Out No longer el igible based on patient's age to complete this topic Pneumonia Vaccine 0-49 Years Aged Out No longer eligible based on patient's age to complete this topic ROTAVIRUS VACCINES Aged Out No longer eligible based on patient's age to complete this topic Procedures Procedure Name Priority Date/Time Associated Diagnosis Comments HEMOGLOBIN A1C Routine 02/13/2023 10:30 AM EDT from Last 3 Months or Most Recently Relevant to Health Maintenance Results * Hemoglobin a1c (02/13/2023 10:30 AM EDT) Hemoglobin A1C 5.5 4.3 - 5.9 [facility] Comment: The [place] [employer] recommends the following: Non-Diabetic <5.7% Prediabetes 5.7 6.4% Diabetes >/= 6.5% Estimated Average Glucose 111 mg/dl REPLACED BY [facility] [employer] [employer] 02/13/2023 10:3 0 AM EDT 02/13/2023 10:44 AM EDT us Jr Calabrese MD LAB BLOOD ORDERABLES Final Resul t [facility] [employer] from Last 3 Months or Most Recently Relevant to Health Maintenance Care Teams Security Systems Specialist Relationship Specialty Start Date End Date Chata Norris NP [address] [place] [phone] PCP - Insurance 08/20/15
--- OUTSIDE RECORDS SUMMARY | 2025-09-07 18:03 | XMS_ITS ---
Author Name [facility] Organization Unknown History of Medication Use Medication Directions Dispensed Refills Start Date End Date Stat us potassium chloride (K-DUR) 20 MEQ tablet extended release Take 1 (one) tablet (20 mEq total) by mouth 2 (two) times a day for 4 doses. 07/22/2025 07/25/2025 active ibuprofen (MOTRIN) 600 MG tablet Take 1 (one) tablet (600 mg total) by mouth every 6 (six) hours as needed (hand pain). 07/22/2025 07/22/2025 active Problems Problem Status Onset Date Problem Type Date of Resolution Source Hypokalemia active EncounterDiagnosisAct [place] Arthralgia of both hands active EncounterDiagnosisAct [place]_[facility] Encounters Encounter Type Encounter Reason Primary Diagnosis Location Date Emergency Psych Complaint Psych Complaint [facility] 09/07/2025 Emergency Arthralgia of both hands Arthralgia of both hands [facility] 07/22/2025 Care Team Organization Name Specialty Phone Email Start Date End Da te [facility] 07/22/2025
--- OUTSIDE RECORDS SUMMARY | 2025-09-07 18:03 | XMS_ITS | Encounter Summary ---
Author Organization [facility] Address [address] [place] [address] Phone Care Team Providers Care Community Arts Worker Name Role Phone Shelli Maher DO Primary Care Provider Encounter Details Date Type Department Care Team (Late st Contact Info) Description 09/01/2024 Procedure Pass [facility] [address] [place] [address] Social History Tobacco Use Types Packs/Day Years [...] documented as of this encounter Care Teams Community Arts Worker Relationship Specialty Start Date End Date Shelli Maher DO [address] [place] [phone] [email or web address] PCP - General Internal Medicine 05/12/24 documented as of this encounter Additional Source Comments The information contained in this document represents components of the legal health record. It is not the complete legal health record.[facility]
--- NOTE | 2025-09-07 19:02 | PC.NURSE ---
Qian arrived to on 09/07/25 at 18:08 on a 12A, with plans to sign CV with provider. She is a Black, 40 year old, female, mother of a 1 year old who self-presented to the ED at [facility] in [place] where she lives with her family, with increased depression, anxiety and suicidal ideation without a plan or intent. She reports having a miscarriage in June and has noticed an increase in her mental health symptoms since that time which she reports feeling similiarly following the of her 1 year old daughter. She also reports loss of energy, feeling detached from her and daughter, low motivation, lack of self-care, loss of appetite, severe anxiety, vague paranoia, and inconsistent sleep. 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 She reports using alcohol as a coping mechanism and has been drinking whiskey daily for the past 2 months from the moment she wakes up until she passes out at night; last drink was the evening of 09/06. She reports she has not struggled with alcohol or addiction in the past; currently has nausea, sweating and tremors related to withdrawal; tox screen was negative. At the time of admission she reports anxiety and depression of 5/10, endorses passive SI with no plan, denies HI; endorses voices saying mean things to her, denies VH. She was hospitalized for depression following the of her daughter a year ago at [facility]. She currently only takes medication for sleep. She doesn?t think she is but cannot confirm for certain. She refused the flu shot this year.
[2025-09-07 19:30] VITALS: BP 163/106; PULSE 86; RESP 17; TEMP 37.3; O2SAT 100
[2025-09-07 19:32] VITALS: BMI 29.0
[2025-09-07 20:00] VITALS: BP 183/115; PULSE 102; TEMP 36.8; O2SAT 98
[2025-09-08 08:00] VITALS: BP 141/85; PULSE 82; RESP 17; TEMP 36.4; O2SAT 94
[2025-09-08 08:33] LABS: Alanine Aminotransferase 18 U/L (0-31); Albumin Level 4.5 g/dL (3.5-5.0); Alkaline Phosphatase 77 U/L (39-117); Anion Gap 17 (12-20); Aspartate Amino Transferase 37 U/L (5-31); Blood Urea Nitrogen 6 mg/dL (9-16); Calcium 8.9 mg/dL (8.4-10.2); Carbon Dioxide 25 mmol/L (22-29); Chloride 105 mmol/L (96-108); Cholesterol 223 mg/dL (<200); Creatinine Clr Calc Pharmacy 131.4; Estimated Glomerular Filt Rate > 60; HDL Cholesterol 112 mg/dL (>40); Magnesium 1.7 mg/dL (1.6-2.6); Potassium 3.5 mmol/L (3.3-5.1); Sodium 143 mmol/L (135-145); Total Protein 7.5 g/dL (6.5-8.0); Triglycerides 101 mg/dL (<150)
[2025-09-08 08:51] LABS: Free T4 (Free Thyroxine) 0.84 ng/dL (0.71-1.85); Thyroid Stimulating Hormone 2.31 uIU/mL (0.32-4.0)
[2025-09-08 09:03] LABS: Folate 14.1 ng/mL (> or = 4.0); Vitamin B12 1465 pg/mL (200-900)
--- NOTE | 2025-09-08 11:43 | HO.PSYADMNOT ---
[facility] Date of Service: 09/08/25 Chief Complaint: SI Sources of Information: patient interviewed, chart reviewed and crisis/core team assessment reviewed HPI Narrative: Patient is a 40-year-old female with history of MDD, PTSD and alcohol use disorder who presented to ER due to suicidal ideation secondary to increased depression, anxiety and alcohol use. Per crisis report, patient reports she had a miscarriage in June 2025. She feels her symptoms are related to miscarriage and notes that she experienced similar symptoms following the of her daughter a year ago. At that time, she also required a inpatient psychiatric hospitalization. Patient reports increased depression with loss of energy, feeling detached from her and child (patient stated, I don't even want to hold her ), low motivation and take care of herself and attend to ADLs, loss of appetite and inconsistent sleep patterns. She denies VH/AH. She does report feelings of paranoia at times. Patient reports she has been abusing alcohol daily for the past 2 months as a coping mechanism. She reports she has been drinking whiskey from the time she wakes up until she passes out at night . She denies any history of seizures. Patient reports she became concerned after her suicidal thoughts became constant; denies plan or any attempts. She denies HI. She is currently not on any psychiatric medications. Denies any other substance use. During admission assessment, patient presents alert and oriented x3. Calm and cooperative. Patient reports feeling anxious and depressed ; patient stated, I was suicidal. I didn't want to be alive. I don't understand why I'm still alive . Patient denies any plan. Denies HI/VH/AH; she does report paranoia at times. Patient stated, I feel like this is not life and that people are watching me be drunk . Patient reports she feels her alcohol use is due to helping her cope with her depression. Patient stated, I had a miscarriage in June and started drinking daily . She reports poor sleep and appetite. She does not have outpatient psychiatric providers, nor does she take any psychiatric medications. Patient reports she was hospitalized one previous time after her daughter was born; she can not recall medication she was started on. Medication monitoring log does not show any medication hx. Patient reports she would like to be started on medications for her mood and something to help the cravings . Patient reports she is currently not interested in a substance abuse program but could not go into detail as to why. Patient reports her works from home and had asked her to stop drinking so, she has been hiding it from him. She states her watches her daughter while she is drinking . Past Psychiatric History: hx of one other inpatient psychiatric admission. does not have outpatient psychiatric providers denies hx of SA/SIB. Medical Evaluation Reviewed: Yes PMFSH Family History: Denies Social History: Lives with and 1-year-old daughter. 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 Bachelor's degree. Substance History: Daily alcohol use; 2 pints of Carolynn daily for the last 2 months. Trauma History: yes Diagnostics Vital Signs (24Hr): Vital Signs - 24 hr 09/07/25 19:30 09/07/25 20:00 09/08/25 08:00 Temperature 99.2 F 98.3 F 97.6 F Pulse Rate 86 102 H 82 Respiratory Rate 17 17 Blood Pressure 163/106 H 183/115 H 141/85 H Pulse Oximetry 100 98 94 Oxygen Delivery Method Room Air Room Air Room Air BMI result Body Mass Index 29.0 Labs 09/08/25 08:05 Labs: Laboratory Results - last 48 hr 09/08/25 08:05 Sodium 143 Potassium 3.5 Chloride 105 Carbon Dioxide 25 Anion Gap 17 BUN 6 L Creatinine 0.69 Estim Creat Clear Calc 131.4 Estimated GFR > 60 Random Glucose 123 H Estimat Average Glucose 100 Hemoglobin A1c % 5.1 Calcium 8.9 Magnesium 1.7 Total Bilirubin 1.6 H AST 37 H ALT 18 Alkaline Phosphatase 77 Total Protein 7.5 Albumin 4.5 Triglycerides 101 Cholesterol 223 H LDL Cholesterol, Calc 91 HDL Cholesterol 112 Vitamin B12 1465 H Folate 14.1 TSH 2.31 Free T4 0.84 Meds/Allergies Meds Home Medications ?Medication ?Instructions ?Recorded ?Confirmed ?Type No Known Home Meds 09/07/25 09/07/25 History Allergies Allergies Allergy/AdvReac Type Severity Reaction Status Date / Time No Known Allergies Allergy Verified 09/07/25 18:27 Mental Status Exam Mental Status Exam Patient Appearance: Well Grooomed Patient Orientation: Person, Place, Time and Situation Level of Consciousness: Awake and Alert Patient Behavior: Appropriate, Cooperative and Good Eye Contact Mood Description: Depressed and Anxious Affect Description: Depressed Ability to Follow Directions: Good Speech Pattern: Clear Memory Description: Intact Hallucinations: None Delusions: Paranoid Ideation Thought Process: Intact Thought Content: positive for Intact Assessment & Plan Assessment & Plan (1) MDD (major depressive disorder), recurrent episode, severe: Status: Acute Code(s): F33.2 - Major depressive disorder, recurrent severe without psychotic features (2) PTSD (post-traumatic stress disorder): Status: Acute Code(s): F43.10 - Post-traumatic stress disorder, unspecified (3) Alcohol use disorder: Status: Acute Code(s): F10.90 - Alcohol use, unspecified, uncomplicated Plan Patient is a 40-year-old female with history of MDD, PTSD and alcohol use disorder who presented to ER due to suicidal ideation secondary to increased depression, anxiety and alcohol use. Plan: 15 minute safety checks Obtain collateral CIWA protocol Start: Zoloft 25mg PO daily;risks/benefits reviewed Consult to addiction medicine Encourage groups referral to outpatient psychiatric providers ? referral to substance abuse program Discharge planning Patient educated on: diagnosis and medication risk/benefits Reason for continued inpatient stay Substantial Risk for: harm to self and med/psych decompensation Statement Statement: I have reviewed the history and physical and performed a pertinent examination on my patient. No changes have occurred unless specified. If the History and Physical was not performed prior to admission, the Hospitalist's service will be consulted for completing the admission physical. Time Spent With Patient Time: Total time managing care of this patient today _60___ minutes.
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
[2025-09-08 20:00] VITALS: BP 114/58; PULSE 96; RESP 18; TEMP 37; O2SAT 100
[2025-09-09 08:04] VITALS: BP 134/89; PULSE 85; RESP 16; TEMP 36.9
--- NOTE | 2025-09-09 11:27 | HO.PSYCHPN ---
Subjective Subjective Date of Service: 09/09/25 Reason For Visit: SI Interim History: Active on unit. showered. Patient reports feeling okay today; she reports not sleeping well d/t anxiety. denies side effects from Zoloft. Continue with CIWA protocol. denies SI/HI/VH/AH. Continue tx plan. Medication Compliance: Yes Side effects from medications: No Mental Status Exam Mental Status Exam Patient Appearance: Well Grooomed Patient Orientation: Person, Place, Time and Situation Level of Consciousness: Awake and Alert Patient Behavior: Appropriate, Cooperative and Good Eye Contact Mood Description: Depressed and Anxious Affect Description: Depressed Ability to Follow Directions: Good Speech Pattern: Clear Memory Description: Intact Hallucinations: None Delusions: Not Present Thought Process: Intact Thought Content: positive for Intact Diagnostics Vital Signs (24Hr): Vital Signs - 24 hr 09/08/25 20:00 09/09/25 08:04 Temperature 98.6 F 98.4 F Pulse Rate 96 85 Respiratory Rate 18 16 Blood Pressure 114/58 L 134/89 Pulse Oximetry 100 Oxygen Delivery Method Room Air Room Air BMI result Body Mass Index 29.0 Labs 09/08/25 08:05 Labs: Laboratory Results - last 48 hr 09/08/25 08:05 Sodium 143 Potassium 3.5 Chloride 105 Carbon Dioxide 25 Anion Gap 17 BUN 6 L Creatinine 0.69 Estim Creat Clear Calc 131.4 Estimated GFR > 60 Random Glucose 123 H Estimat Average Glucose 100 Hemoglobin A1c % 5.1 Calcium 8.9 Magnesium 1.7 Total Bilirubin 1.6 H AST 37 H ALT 18 Alkaline Phosphatase 77 Total Protein 7.5 Albumin 4.5 Triglycerides 101 Cholesterol 223 H LDL Cholesterol, Calc 91 HDL Cholesterol 112 Vitamin B12 1465 H Folate 14.1 TSH 2.31 Free T4 0.84 Medications Medications Current Medications Acetaminophen (Acetaminophen 325 Mg Tablet) 650 mg PO Q6H PRN PRN Reason: Headache/Pain, Scale 1-10 Last Admin: 09/08/25 22:44 Dose: 650 mg Al Hydroxide/Mg Hydroxide (Magnesium Hydrox/Alum Hydrox 30 Ml Oral.Susp) 30 ml PO Q6H PRN PRN Reason: Heartburn/Nausea Hydroxyzine HCl (Hydroxyzine Hcl 25 Mg Tablet) 25 mg PO Q6H PRN PRN Reason: mild anxiety Last Admin: 09/08/25 22:44 Dose: 25 mg Lorazepam (Lorazepam 1 Mg Tablet) 1 mg PO Q2H PRN PRN Reason: CIWA 8-11 Lorazepam (Lorazepam 1 Mg Tablet) 2 mg PO Q2H PRN PRN Reason: CIWA 12-15 Lorazepam (Lorazepam 1 Mg Tablet) 3 mg PO Q2H PRN PRN Reason: CIWA > 15, and call Magnesium Hydroxide (Milk Of Magnesia 30 Ml Oral.Susp) 30 ml PO DAILY PRN PRN Reason: Constipation Nicotine (Nicotine 21 Mg Patch.Td24) 21 mg TRANSDERMA DAILY PRN PRN Reason: nicotine craving Nicotine Polacrilex (Nicotine Polacrilex 2 Mg Gum) 2 mg BUCCAL Q2H PRN PRN Reason: Nicotine Cravings Sertraline HCl (Sertraline Hcl 25 Mg Tablet) 25 mg PO DAILY [facility] Last Admin: 09/09/25 09:34 Dose: 25 mg Thiamine HCl (Thiamine Hcl 100 Mg Tablet) 100 mg PO DAILY [facility] Last Admin: 09/09/25 09:34 Dose: 100 mg Trazodone HCl (Trazodone Hcl 50 Mg Tablet) 50 mg PO BEDTIME MRX1 PRN PRN Reason: Insomnia Last Admin: 09/08/25 00:20 Dose: 50 mg Allergies Allergies Allergy/AdvReac Type Severity Reaction Status Date / Time No Known Allergies Allergy Verified 09/07/25 18:27 Assessment & Plan Assessment & Plan (1) MDD (major depressive disorder), recurrent episode, severe: Status: Acute Code(s): F33.2 - Major depressive disorder, recurrent severe without psychotic features (2) PTSD (post-traumatic stress disorder): Status: Acute Code(s): F43.10 - Post-traumatic stress disorder, unspecified (3) Alcohol use disorder: Status: Acute Code(s): F10.90 - Alcohol use, unspecified, uncomplicated Plan Patient is a 40-year-old female with history of MDD, PTSD and alcohol use disorder who presented to ER due to suicidal ideation secondary to increased depression, anxiety and alcohol use. Plan: 15 minute safety checks Obtain collateral CIWA protocol Start: Zoloft 25mg PO daily;risks/benefits reviewed Consult to addiction medicine Encourage groups referral to outpatient psychiatric providers ? referral to substance abuse program Discharge planning 09/09: continue tx plan. Patient educated on: diagnosis, medication risk/benefits and therapeutic strategies Reason for continued inpatient stay Substantial Risk for: med/psych decompensation Time Spent With Patient Time: Total time managing care of this patient today _20___ minutes.
--- NOTE | 2025-09-09 15:26 | MHC.RECOVRN ---
Addendum entered by Evgeny Yanes RN 09/09/25 16:02: Pt denies withdrawal symptoms and has not been scoring on CIWAs. Original Note: Pt is a 40-y/o Black female who was admitted to for treatment of worsening depression w/SI following suspected miscarriage in June 2025. Pt has a 1-y/o child and has a hx of depression . Consult was placed to ACS team for evaluation of alcohol use disorder and recovery support. Pt reported daily whiskey use (10+ drinks) for the past 2 months . Initially her drinking was only on the weekends, but it gradually increased over time , and became a daily occurrence following a miscarriage in June 2025. Pt states she only uses alcohol and denies polysubstance use. She has never received any treatment for AUD but is now interested in recovery coaching/support and PRANAV. Pt is open to recommendations . Pt denies family history of AUD. She states she has a strong family connection and has family support. Discussed PRANAV and potential benefits . Discussed other treatment modalities such as inpatient/outpatient tx of AUD. Pt interested in discussing this further with the addiction medicine provider. Written materials provided on AUD, PRANAV, other treatment options, and harm reduction. Briefly discussed risk reduction strategies for alcohol use, however, pt would rather fully abstain from alcohol and not interested in moderation at this time. Pt was encouraged to attend the psych and AA group meetings on the unit. Addiction medicine provider made aware of pt's interest in PRANAV. ACS team available as needed to assist with recovery needs.
[2025-09-09 20:00] VITALS: BP 140/88; PULSE 94; RESP 15; TEMP 36.9; O2SAT 98
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
[2025-09-10 08:00] VITALS: BP 149/94; PULSE 95; RESP 18; TEMP 36.9; O2SAT 98
--- NOTE | 2025-09-10 10:09 | PC.NURSE ---
Pt arrived on the unit as a transfer from , AT 0945. Skin check complete, nothing noted. Pt shown unit and denies any questions at this time. She is here on a CV.
[2025-09-10 10:31] VITALS: BP 131/84; PULSE 105
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
[2025-09-10] MEDS: Magnesium Hydrox/Alum Hydrox 30 ML ORAL.SUSP PO (12:17)
[2025-09-10 12:21] VITALS: BP 154/94; PULSE 101; RESP 18; TEMP 37; O2SAT 98
--- NOTE | 2025-09-10 12:22 | HO.PSYCHPN ---
Subjective Subjective Reason For Visit: SI Diagnostics Vital Signs (24Hr): Vital Signs - 24 hr 09/09/25 20:00 09/10/25 08:00 09/10/25 10:31 Temperature 98.4 F 98.4 F Pulse Rate 94 95 105 H Respiratory Rate 15 18 Blood Pressure 140/88 H 149/94 H 131/84 Pulse Oximetry 98 98 Oxygen Delivery Method Room Air BMI result Body Mass Index 29.0 Labs 09/08/25 08:05 Medications Medications Current Medications Acetaminophen (Acetaminophen 325 Mg Tablet) 650 mg PO Q6H PRN PRN Reason: Headache/Pain, Scale 1-10 Last Admin: 09/08/25 22:44 Dose: 650 mg Al Hydroxide/Mg Hydroxide (Magnesium Hydrox/Alum Hydrox 30 Ml Oral.Susp) 30 ml PO Q6H PRN PRN Reason: Heartburn/Nausea Last Admin: 09/10/25 12:17 Dose: 30 ml Hydroxyzine HCl (Hydroxyzine Hcl 25 Mg Tablet) 25 mg PO Q6H PRN PRN Reason: mild anxiety Last Admin: 09/09/25 23:23 Dose: 25 mg Lorazepam (Lorazepam 1 Mg Tablet) 1 mg PO Q2H PRN PRN Reason: CIWA 8-11 Last Admin: 09/10/25 12:17 Dose: 1 mg Lorazepam (Lorazepam 1 Mg Tablet) 2 mg PO Q2H PRN PRN Reason: CIWA 12-15 Lorazepam (Lorazepam 1 Mg Tablet) 3 mg PO Q2H PRN PRN Reason: CIWA > 15, and call Magnesium Hydroxide (Milk Of Magnesia 30 Ml Oral.Susp) 30 ml PO DAILY PRN PRN Reason: Constipation Naltrexone HCl (Naltrexone Hcl 50 Mg Tablet) 25 mg PO DAILY ISABELLE Stop: 09/12/25 09:01 Last Admin: 09/10/25 12:17 Dose: 25 mg Naltrexone HCl (Naltrexone Hcl 50 Mg Tablet) 50 mg PO DAILY ISABELLE Sertraline HCl (Sertraline Hcl 25 Mg Tablet) 25 mg PO DAILY ISABELLE Last Admin: 09/10/25 08:21 Dose: 25 mg Thiamine HCl (Thiamine Hcl 100 Mg Tablet) 100 mg PO DAILY ISABELLE Last Admin: 09/10/25 08:21 Dose: 100 mg Trazodone HCl (Trazodone Hcl 50 Mg Tablet) 50 mg PO BEDTIME MRX1 PRN PRN Reason: Insomnia Last Admin: 09/08/25 00:20 Dose: 50 mg Allergies Allergies Allergy/AdvReac Type Severity Reaction Status Date / Time No Known Allergies Allergy Verified 09/07/25 18:27 Assessment & Plan Assessment & Plan (1) Alcohol use disorder: Status: Acute Code(s): F10.90 - Alcohol use, unspecified, uncomplicated Assessment and Plan: Reviewed medication, side effects, goals of treatment. Agreeable to naltrexone 25mg x3 days, then increase to 50mg QD--expressed interest in Vivitrol, advised that this usually happens outpatient, as we need to ensure she can tolerate PO food assembler kitchen to f/u with coping strategies sheet If open to it, may benefit from a PHP/IOP once home to continue building and strengthening coping strategies--ricardo given limited supports Time Spent With Patient Time: Total time managing care of this patient today ____ minutes.
[2025-09-10 14:07] VITALS: BP 127/77; PULSE 99
[2025-09-10 19:16] LABS: Resp Syncy Virus RNA Qual PCR NEGATIVE (Negative); SARS COV2 PCR INHOUSE NEGATIVE (Negative)
[2025-09-10 20:00] VITALS: BP 145/92; PULSE 83; RESP 20; TEMP 36.4; O2SAT 100
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
[2025-09-11 08:10] VITALS: BP 131/95; PULSE 113; RESP 16; TEMP 37.2; O2SAT 96
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
[2025-09-11 20:58] VITALS: BP 139/94; PULSE 95; RESP 16; TEMP 37.5; O2SAT 97
[2025-09-11] MEDS: traZODone HCL 25 MG HALFTAB PO (21:46)
[2025-09-12 08:00] VITALS: BP 130/90; PULSE 98; RESP 18; TEMP 37.7; O2SAT 97
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
[2025-09-12 12:08] VITALS: BP 129/80; PULSE 94; TEMP 37.2
--- NOTE | 2025-09-12 12:16 | MHC.RECOVRN ---
TW met with pt in 323 to offer continued support related to alcohol use. On approach pt is quiet & guarded but pleasant and agreed to meet with TW. Pt states she is anxious and mildly upset that she must stay through [place] and stated, I just need to get out of here . Pt denies experiencing negative side effects from initiation of Naltrexone and states she is hopeful it will help to curb her desire for alcohol. Pt reports she reviewed several educational materials on coping strategies and is looking forward to working with a therapist in the future and reiterated that she does not want to continue her alcohol use. She denies the need for additional intervention or output appt for alcohol use at this time and declined a referral for recovery coaching.
[2025-09-12 20:20] VITALS: BP 131/66; PULSE 83; RESP 18; TEMP 36.6; O2SAT 98
[2025-09-12] MEDS: traZODone HCL 25 MG HALFTAB PO (22:48)
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
== END 2025-09-13 07:56 | disposition home or self-care (01) | DRG 885 ==
LOC: HO.PM5 09-10 07:42 → HO.PADLT16 09-10 09:34
PROVIDERS: Clinical Nurse Specialist Psychiatric/Mental Health, Adult; Nurse Practitioner Psychiatric/Mental Health; Admitting Provider Psychiatry & Neurology Psychiatry; Responsible Provider Registered Nurse; Visit Provider Psychiatry & Neurology Psychiatry
DX: F33.2 Major depressive disorder, recurrent severe without psychotic features (principal); R45.851 Suicidal ideations; F43.10 Post-traumatic stress disorder, unspecified; F10.90 Alcohol use, unspecified, uncomplicated; I10 Essential (primary) hypertension; Z20.822 Contact with and (suspected) exposure to COVID-19; Z79.899 Other long term (current) drug therapy
CPT/HCPCS: 36415; 80053; 80061; 82607; 82746; 83036; 83735; 84439; 84443; 87637

== ENCOUNTER → 2025-09-07 17:55 | Outpatient (BNV) | payer OTHER, SELFPAY | PROVIDERS: Admitting Provider Psychiatry & Neurology Psychiatry; Visit Provider Registered Nurse | DX: F33.2 Major depressive disorder, recurrent severe without psychotic features (principal); F10.90 Alcohol use, unspecified, uncomplicated; F43.11 Post-traumatic stress disorder, acute | CPT/HCPCS: 99232; 99499 ==

== ENCOUNTER → 2025-09-07 17:55 | Outpatient (BNV) | payer MEDICAID, SELFPAY | PROVIDERS: Admitting Provider Psychiatry & Neurology Psychiatry; Visit Provider Student in an Organized Health Care Education/Training Program | DX: Z00.8 Encounter for other general examination (principal) | CPT/HCPCS: 99223 ==